=== PATIENT | male | born 1965 | race American Indian/Alaskan Native ===

== ENCOUNTER 2019-09-17 11:03 | Emergency (ER) | payer BC ==
--- NOTE | 2019-09-17 11:22 | Event Note ---
ED Screening Note Date of service: 09/17/19 Time: 11:21 ED Screening Note: 54 y o male presents with cc of lower pelv groin pain and mass x 3 days denies, f/n/v/c This initial assessment/diagnostic orders/clinical plan/treatment(s) is/are subject to change based on patients health status, clinical progression and re- assessment by fellow clinical providers in the ED. Further treatment and workup at subsequent clinical providers discretion. Patient/guardian urged not to elope from the ED as their condition may be serious if not clinically assessed and managed. Initial orders include: acc eval
[2019-09-17] MEDS ORDERED: hydrALAZINE 25 MG TAB PO ONE (15:38)
--- NOTE | 2019-09-17 15:44 | Emergency Department Report ---
<GENO SANCHEZ - Last Filed: 09/18/19 00:34> ED General Adult HPI - General Chief complaint: Skin/Abscess/Foreign Body Stated complaint: BOIL GROIN AREA/BLEEDING DISCHARGE Time Seen by Provider: 09/17/19 14:05 - Related Data Previous Rx's Medication Instructions Recorded Last Taken Type Clindamycin [Clindamycin CAP] 300 mg PO Q6H 10 Days #40 capsule 09/17/19 Unknown Rx Mupirocin [Bactroban 2% OINT] 1 applic TP TID 7 Days #1 tube 09/17/19 Unknown Rx Allergies Allergy/AdvReac Type Severity Reaction Status Date / Time hydrocodone Allergy Hives Verified 09/17/19 11:06 ED Past Medical Hx - Medications Home Medications: Home Medications Medication Instructions Recorded Confirmed Last Taken Type Clindamycin [Clindamycin CAP] 300 mg PO Q6H 10 Days #40 capsule 09/17/19 Unkn own Rx Mupirocin [Bactroban 2% OINT] 1 applic TP TID 7 Days #1 tube 09/17/19 Unknown Rx ED Medical Decision Making - Lab Data Result diagrams: 09/17/19 16:59 09/17/19 16:59 - Medical Decision Making Pt was discharged after glucose decreased to 299 and explained to follow discharge instructions as directed. Pt verbalized understanding and agreed with the plan of care. ED Disposition Clinical Impression: Suprapubic abscess, Elevated blood pressure reading, Uncontrolled diabetes mellitus Disposition: DC-01 TO HOME OR SELFCARE Condition: Stable Instructions: Abscess Incision and Drainage (ED), Diabetes Mellitus Type 2 in Adults (ED), Abscess (ED), Hypertension (ED) Additional Instructions: Pt was instructed to take Bactroban and Clindamycin as directed. He was further instructed to monitor blood pressure, blood glucose levels and wound management. The pt was also given a referral to a local Internal Medicine clinic. He was instructed to see ER if symptoms worsen or severe symptoms arise. Pt verbalized understanding and agreed with the plan of care. Prescriptions: Mupirocin [Bactroban 2% OINT] 1 applic TP TID 7 Days #1 tube Clindamycin [Clindamycin CAP] 300 mg PO Q6H 10 Days #40 capsule Referrals: [facility] [Provider Group] - 2-3 Days (For Blood Pressure Evaluation and Treatment and further management of your diabetes) <TOMI PRUETT - Last Filed: 09/23/19 07:43> ED General Adult HPI - General Source: patient Mode of arrival: Ambulatory Limitations: No Limitations - History of Present Illness Initial comments: 54-year-old male patient with history of diabetes and HLD presents with complaints of abscess in his suprapubic region 3 days. Patient states abscess has been recurrent over the past 1-2 years. He denies any fever/chills/sweats/bodyaches. Patient states he has been using warm compresses in the abscess began to drain this morning. He rates his pain as a 4/10 in lisa rity. Blood pressure noted to be significantly elevated. Patient denies history of hypertension, chest pain, shortness of breath, vision changes, or dizziness. Tates he has not been to the doctor in 1-2 years due to not having insurance. -: Sudden Location: buttocks ED Review of Systems ROS: Stated complaint: BOIL GROIN AREA/BLEEDING DISCHARGE Other details as noted in HPI Comment: All other systems reviewed and negative Skin: as per HPI ED Past Medical Hx - Past Medical History Previous Medical History?: Yes Hx Diabetes: Yes Additional medical history: high cholesterol - Surgical History Past Surgical History?: Yes Additional Surgical History: Hernia repair, right knee surgery - Social History Smoking Status: Never Smoker Substance Use Type: None ED Physical Exam - General Limitations: No Limitations General appearance: alert, in no apparent distress, obese - Head Head exam: Present: atraumatic, normocephalic - Eye Eye exam: Present: normal appearance. Absent: scleral icterus - Neck Neck exam: Present: normal inspection - Respiratory Respiratory exam: Present: normal lung sounds bilaterally. Absent: respiratory distress - Cardiovascular Cardiovascular Exam: Present: regular rate, normal rhythm. Absent: systolic murmur, diastolic murmur, rubs, gallop - GI/Abdominal GI/Abdominal exam: Present: soft. Absent: distended - Rectal Rectal exam: Present: deferred - Extremities Exam Extremities exam: Present: normal inspection - Neurological Exam Neurological exam: Present: alert, oriented X3 - Psychiatric Psychiatric exam: Present: normal affect, normal mood - Skin Skin exam: Present: warm, dry, erythema, other ((an abscess noted and mid suprapubic region with 5-7 cm of surrounding erythema. No induration noted. Drainage is purulent.) ED Course Vital Signs 09/17/19 09/17/19 09/17/19 11:20 15:19 15:47 Temperature 97.9 F Pulse Rate 91 H 82 Respiratory 20 Rate Blood Pressure 198/125 216/125 Blood Pressure 216/125 [Right] O2 Sat by Pulse 99 Oximetry 09/17/19 09/17/19 09/17/19 16:35 17:14 17:16 Temperature Pulse Rate 78 80 80 Respiratory 20 Rate Blood Pressure 158/101 Blood Pressure 230/135 158/101 [Right] O2 Sat by Pulse Oximetry 09/17/19 17:29 Temperature Pulse Rate 80 Respiratory Rate Blood Pressure 158/101 Blood Pressure [Right] O2 Sat by Pulse Oximetry ED Medical Decision Making - Lab Data Result diagrams: 09/17/19 16:59 09/17/19 16:59 Lab Results 09/17/19 09/17/19 09/17/19 Range/Units 16:48 16:59 16:59 WBC 9.4 (4.5-11.0) K/mm3 RBC 6.47 H (3.65-5.03) M/mm3 Hgb 15.0 (11.8-15.2) gm/dl Hct 48.7 H (35.5-45.6) % MCV 75 L (84-94) fl MCH 23 L (28-32) pg MCHC 31 L (32-34) % RDW 13.9 (13.2-15.2) % Plt Count 197 (140-440) K/mm3 Lymph % (Auto) 19.5 (13.4-35.0) % Troup % (Auto) 8.8 H (0.0-7.3) % Eos % (Auto) 2.1 (0.0-4.3) % Baso % (Auto) 0.8 (0.0-1.8) % Lymph # 1.8 (1.2-5.4) K/mm3 Troup # 0.8 (0.0-0.8) K/mm3 Eos # 0.2 (0.0-0.4) K/mm3 Baso # 0.1 (0.0-0.1) K/mm3 Seg Neutrophils % 68.8 (40.0-70.0) % Seg Neutrophils # 6.5 (1.8-7.7) K/mm3 Sodium 133 L (137-145) mmol/L Potassium 4.6 (3.6-5.0) mmol/L Chloride 95.2 L (98-107) mmol/L Carbon Dioxide 21 L (22-30) mmol/L Anion Gap 21 mmol/L BUN 15 (9-20) mg/dL Creatinine 0.7 L (0.8-1.5) mg/dL Estimated GFR > 60 ml/min BUN/Creatinine Ratio 21 % Glucose 442 H (75-100) mg/dL POC Glucose 381 H (70-105) Calcium 9.8 (8.4-10.2) mg/dL - Radiology Data Radiology results: report reviewed - Medical Decision Making 34-year-old male patient here today with complaints of abscess on suprapubic region for the past 3 days. Patient states abscess is recurrent. He has po sitive history of diabetes, however he states he is controlling his diabetes with diet. Patient's abscesses opened and draining currently. No fever noted. WBCs are normal. Patient's blood pressure also noted to be significantly elevated upon arrival. After oral hydralazine 50, blood pressure now 158/101. Patient denies history of hypertension. Patient's glucose also noted to be elevated at 381. Blood glucose now after 6 units of IV insulin and 1 L of fluids. Patient to discharge home with clindamycin and mupirocin for treatment of his abscess pending glucose recheck of <300. Discussed the importance of follow with primary care provider concerning reevaluation of his blood pressure area also discussed very strict return precautions in detail with patient. Patient verbalizes understanding. Critical care attestation.: If time is entered above; I have spent that time in minutes in the direct care of this critically ill patient, excluding procedure time. ED Disposition Is pt being admited?: No
[2019-09-17] MEDS ORDERED: INSULIN REGULAR, HUMAN 100 UNITS/1 ML IV ONE ×3 (17:06→18:09)
[2019-09-17 17:13] LABS: Basophils # (Auto) 0.1 K/mm3 (0.0-0.1); Basophils % (Auto) 0.8 % (0.0-1.8); Eosinophils # (Auto) 0.2 K/mm3 (0.0-0.4); Eosinophils % (Auto) 2.1 % (0.0-4.3); Lymphocytes # (Auto) 1.8 K/mm3 (1.2-5.4); Lymphocytes % (Auto) 19.5 % (13.4-35.0); Mean Corpuscular HGB Conc 31 % (32-34); Mean Corpuscular Volume 75 fl (84-94); Monocytes # (Auto) 0.8 K/mm3 (0.0-0.8); Monocytes % (Auto) 8.8 % (0.0-7.3); Platelet Count 197 K/mm3 (140-440); Red Blood Count 6.47 M/mm3 (3.65-5.03); Red Cell Distribution Width 13.9 % (13.2-15.2)
[2019-09-17 17:14] LABS: Hematocrit 48.7 % (35.5-45.6)
[2019-09-17 17:15] VITALS: BP 158/101
[2019-09-17] MEDS ORDERED: SODIUM CHLORIDE 0.9% 1000 ML 1,000 ML IV ONE (17:20)
[2019-09-17] MEDS ORDERED: SODIUM CHLORIDE 0.9% 1000 ML 1,000 ML ONE (17:22)
[2019-09-17 17:30] LABS: BUN/Creatinine Ratio 21; Blood Urea Nitrogen 15 mg/dL (9-20); Calcium 9.8 mg/dL (8.4-10.2); Hemolysis Index 33
== END 2019-09-17 19:06 | disposition home or self-care (01) ==
LOC: ED 11:03
DX: L02.211 Cutaneous abscess of abdominal wall (principal); E11.65 Type 2 diabetes mellitus with hyperglycemia; Z98.890 Other specified postprocedural states; Z79.899 Other long term (current) drug therapy; Z88.8 Allergy status to other drugs, medicaments and biological substances
CPT/HCPCS: 36415; 80048; 82962; 85025; 87116; 96361; 96374; 96376; 99284; J7030; J1815

== ENCOUNTER 2020-09-12 15:06 | Emergency (ER) | payer BC ==
[2020-09-12 15:12] VITALS: BP 142/96
--- NOTE | 2020-09-12 16:31 | Emergency Department Report ---
ED Abdominal Pain HPI - General Chief Complaint: Abdominal Pain Stated Complaint: ABD PAINS Time Seen by Provider: 09/12/20 16:24 Source: patient Mode of arrival: Ambulatory Limitations: No Limitations - History of Present Illness Initial Comments: 55-year-old -[place] male presents to the emergency room complaining of abdominal pain due to hernia and constipation. Patient states that he had a hernia repair back in 2004 at the same location. Patient reports that he did have mesh that he remembers. Patient states in the last 3 weeks has been having more pain at that area with protrusion. Patient states is been having a slow down of his BMs will take 3 to 4 days before he is able to go. Patient states his been taking [id number] laxatives. Patient states he was able to have a BM today. Patient states that the hernia is better when is pushed in. Patient reports no past medical history currently takes no medications on a neli ly basis and has a history of hydrocodone. Patient denies any fever reports intermittent nausea but no vomiting. Patient has a past medical hypertension. Does not currently have a primary care provider. Has not followed up with the surgeon. MD Complaint: abdominal pain Location: periumbilical Radiation: none Migration to: no migration Severity scale (0 -10): 8 Quality: fullness, sharp Consistency: intermittent Improves With: other (When hernia is reduced) Worsens With: other (Valsalva) - Related Data Previous Rx's Medication Instructions Recorded Last Taken Type Clindamycin [Clindamycin CAP] 300 mg PO Q6H 10 Days #40 capsule 09/17/19 Unknown Rx Mupirocin [Bactroban 2% OINT] 1 applic TP TID 7 Days #1 tube 09/17/19 Unknown Rx Allergies Allergy/AdvReac Type Severity Reaction Status Date / Time hydrocodone Allergy Hives Verified 09/17/19 11:06 ED Review of Systems ROS: Stated complaint: ABD PAINS Other details as noted in HPI Comment: All other systems reviewed and negative ED Past Medical Hx - Past Medical History Hx Hypertension: Yes Hx Diabetes: Yes Additional medical history: high cholesterol - Surgical History Additional Surgical History: Hernia repair, right knee surgery - Social History Smoking Status: Never Smoker - Medications Home Medications: Home Medications Medication Instructions Recorded Confirmed Last Taken Type Clindamycin [Clindamycin CAP] 300 mg PO Q6H 10 Days #40 capsule 09/17/19 Unknown Rx Mupirocin [Bactroban 2% OINT] 1 applic TP TID 7 Days #1 tube 09/17/19 Unknown Rx ED Physical Exam - General Limitations: No Limitations General appearance: alert, in no apparent distress - Head Head exam: Present: atraumatic, normocephalic - Eye Eye exam: Present: normal appearance - ENT ENT exam: Present: mucous membranes moist - Respiratory Respiratory exam: Present: normal lung sounds bilaterally. Absent: respiratory distress, chest wall tenderness - Cardiovascular Cardiovascular Exam: Present: regular rate - GI/Abdominal GI/Abdominal exam: Present: soft, tenderness, normal bowel sounds, hernia (Able to reduce). Absent: distended - Neurological Exam Neurological exam: Present: alert, oriented X3, normal gait - Psychiatric Psychiatric exam: Present: normal affect, normal mood - Skin Skin exam: Present: warm, dry, intact, normal color. Absent: rash ED Course Vital Signs 09/12/20 15:11 Temperature 97.9 F Pulse Rate 44 L Respiratory 14 Rate Blood Pressure 142/96 O2 Sat by Pulse 96 Oximetry ED Medical Decision Making - Medical Decision Making 55-year-old -[place] male presents to the emergency room complaining of abdominal pain due to hernia and constipation. Patient states that he had a hernia repair back in 2004 at the same location. Patient reports that he did have mesh that he remembers. Patient states in the last 3 weeks has been having more pain at that area with protrusion. Patient states is been having a slow down of his BMs will take 3 to 4 days before he is able to go. Patient states his been taking [id number] laxatives. Patient states he was able to have a BM today. Patient states that the hernia is better when is pushed in. Patient reports no past medical history currently takes no medications on a daily basis and has a history of hydrocodone. Patient denies any fever reports intermittent nausea but no vomiting. Patient has a past medical hypertension. Does not currently have a primary care provider. Has not followed up with the surgeon. Hernia was able to be reduced. I discussed with patient he can take MiraLAX for the constipation and to follow-up with surgeon first thing this week. Patient verbalized understanding. Critical care attestation.: If time is entered above; I have spent that time in minutes in the direct care of this critically ill patient, excluding procedure time. ED Disposition Clinical Impression: Hernia, ventral Qualifiers: Obstruction and gangrene presence: without obstruction or gangrene Qualified Code(s): K43.9 - Ventral hernia without obstruction or gangrene Disposition: TO HOME OR SELFCARE Is pt being admited?: No Does the pt Need Aspirin: No Condition: Stable Instructions: Hernia, Adult, [id number] Additional Instructions: Patient can take ibuprofen or Tylenol. Is very important for you to follow-up with the surgeon. I recommend wearing a waist binder will help. You can purchase those from [employer] or the pharmacy. Referrals: KAREN FAM MD [Staff Physician] - 3-5 Days Forms: Work/School Release Form(ED)
== END 2020-09-12 16:34 | disposition home or self-care (01) ==
LOC: ED 15:06
DX: K43.9 Ventral hernia without obstruction or gangrene (principal); I10 Essential (primary) hypertension; E11.9 Type 2 diabetes mellitus without complications; Z98.890 Other specified postprocedural states; Z79.2 Long term (current) use of antibiotics; Z79.899 Other long term (current) drug therapy; Z88.8 Allergy status to other drugs, medicaments and biological substances
CPT/HCPCS: 99281